=== PATIENT | male | born 1990 | race Caucasian/White ===

== ENCOUNTER → 2019-12-09 16:04 | Outpatient (CLI) | payer OTHER, SELFPAY | PROVIDERS: Visit Provider Physician Assistant | DX: J02.9 Acute pharyngitis, unspecified (principal) | CPT/HCPCS: 87070; 87147 ==

== ENCOUNTER 2020-05-28 15:54 | Emergency (ER) | payer OTHER, SELFPAY ==
[2020-05-28 16:00] VITALS: BP 146/94; PULSE 84; RESP 18; TEMP 36.9; O2SAT 96; BMI 25.0
[2020-05-28 16:48] LABS: Add Manual Diff / Slide Review NO; Basophils Absolute Auto 100 /uL (0-100); Eosinophils Absolute Auto 200 /uL (0-450); Eosinophils Percent Auto 2.2 % (2-4); Hematocrit 43.3 % (41-53); Hemoglobin 14.8 g/dL (13.5-17.5); Lymphocytes Absolute Auto 2100 /uL (1100-4500); Lymphocytes Percent Auto 28.6 % (25-40); Mean Corpuscular HGB Conc 34.2 % (30-36); Mean Corpuscular Hemoglobin 31.6 PG (26-34); Mean Corpuscular Volume 92.4 fL (80-100); Monocytes Absolute Auto 600 /uL (0-900); Monocytes Percent Auto 7.8 % (3-14); Neutrophils Absolute Auto 4400 /uL (1500-7000); Neutrophils Percent Auto 60.4 % (50-75); Platelet Count 313 X10^3/uL (150-400); Red Blood Cell Count 4.68 X10^6/uL (4.5-5.9); Red Cell Distribution Width 13.2 % (11.6-14.8); White Blood Cell Count 7.3 X10^3/uL (4.5-11.0)
--- NOTE | 2020-05-28 16:50 | ED.GENADULT ---
HPI - General Adult General Chief complaint: Syncope Stated complaint: Syncopal episode Time Seen by Provider: 05/28/20 16:24 Source: patient and EMS Mode of arrival: EMS Limitations: altered mental status History of Present Illness HPI narrative: 29-year-old gentleman brought in by medics this afternoon with complaints that he was unresponsive for somewhere between 7 and 10 minutes. His friend is here to help with history supplementation. Apparently he has been drinking this morning and was sitting on his porch and then leaned back and was simply unresponsive. He did continue breathing his friend noted that he did not have seizure activity however his eyes were not closed and that did not appear that he was the ?usual passed out like he was drunk?. Once he did regain consciousness his friend asked him if he wanted to call a medic and the patient responded affirmatively. Once in the emergency room he is rather argumentative and uncooperative and simply states that he wants to go home. His speech is minimally slurred and he has a minimally unsteady gait but is able to walk to the bathroom unaided. His friend reports that he then had told him about a similar episode within the last year or two. He is in tells his friend that he did not have any additional workup because he was not willing to allow blood to be drawn or studies to be run. At this time, He is unwilling to offer any additional history or answer questions at this time. He has consented to blood work but is declining any physical exam or additional help. Review of records indicate that [facility] citalopram and Xanax for refilled for generalized anxiety disorder and depression and he was to return in 3 weeks to re-evaluate medications. The follow-up visit was canceled. Related Data Home Medications Medication Instructions Recorded Confirmed citalopram 20 mg tablet 20 mg PO DAILY 03/23/20 03/23/20 pantoprazole 20 mg tablet,delayed 20 mg PO DAILY 03/23/20 03/23/20 release Previous Rx's Medication Instructions Recorded alprazolam 0.5 mg tablet,extended 0.5 mg PO DAILY #20 tab 03/23/20 release 24 hr citalopram 20 mg tablet 20 mg PO DAILY #30 tab 03/23/20 Allergies Allergy/AdvReac Type Severity Reaction Status Date / Time amoxicillin Allergy Intermediate Hives Verified 03/23/20 16:16 Review of Systems Review of Systems ROS Unobtainable: Unobtainable due to medical condition Patient History Medical History (Updated 05/28/20 @ 17:56 by Nidia Jacobo MD) Chronic GERD (Acute) Generalized anxiety disorder with panic attacks (Acute) Social History Smoking Status: Unknown if ever smoked Smokeless tobacco user: chewing tobacco alcohol intake: never Smoking Status: Unknown if ever smoked alcohol intake frequency: 3 or more drinks per day Alcohol type: hard liquor Substance Use Type: prescription drug Exam Narrative Exam Narrative: General: No acute distress, minimally cooperative HEENT: Moist mucous membranes, normal sclera with reactive pupils, Neck: supple Respiratory: Lungs are clear to auscultation, no wheezing no rales no rhonchi. Full and symmetrical air movement Cardiac: Mildly tachycardic with Regular rate and rhythm no murmurs no bruits Abdomen: Soft nontender good bowel tones, no flank pain Skin: Warm and dry, no rashes Neurologic: Wide-based slightly unsteady gait but no obvious asymmetries or abnormalities Extremities: No trauma, well perfused Psych: belligerent, slightly slurred speech and slightly intoxicated appearing Initial Vital Signs Initial Vital Signs: Vital Signs Temperature 98.5 F 05/28/20 16:00 Pulse Rate 84 05/28/20 16:00 Respiratory Rate 18 05/28/20 16:00 Blood Pressure 146/94 H 05/28/20 16:00 Pulse Oximetry 96 05/28/20 16:00 Course Orders Ordered: ED Orders 05/28/20 16:37 Complete Blood Count AUTO DIFF Stat Comprehensive Metabolic Panel Stat Ethanol (ETOH) Stat Troponin & CK Cardiac Panel Stat 05/28/20 17:04 CT head/brain wo con Stat 05/28/20 17:05 Urine Drug Screen, Rapid Stat Sodium Chloride (Normal Saline 0.9%) 1,000 mls @ 1,000 mls/hr IV BOLUS ONE Stop: 05/28/20 18:43 Discontinued Medications Thiamine HCl (Vitamin B-1) 100 mg IV NOW ONE Stop: 05/28/20 17:45 Vital Signs Vital signs: Vital Signs - 8 hr 05/28/20 16:00 05/28/20 17:00 05/28/20 17:09 Temperature 98.5 F 97.6 F Pulse Rate 84 76 Respiratory Rate 18 20 Blood Pressure 146/94 H Blood Pressure [Right Arm] 156/84 H 156/84 H Pulse Oximetry 96 95 Medical Decision Making Medical Records Medical records reviewed: Yes I reviewed the patient's medical records. Lab Data Lab results reviewed: Yes I reviewed the patient's lab results. Lab results narrative: Alcohol 399 Result diagrams: 05/28/20 16:37 05/28/20 16:37 Labs: Lab Results 05/28/20 05/28/20 05/28/20 Range/Units 16:37 16:37 16:37 WBC 7.3 (4.5-11.0) X10^3/uL RBC 4.68 (4.5-5.9) X10^6/uL Hgb 14.8 (13.5-17.5) g/dL Hct 43.3 (41-53) % MCV 92.4 (80-100) fL MCH 31.6 (26-34) PG MCHC 34.2 (30-36) % RDW 13.2 (11.6-14.8) % Plt Count 313 (150-400) X10^3/uL Neut % (Auto) 60.4 (50-75) % Lymph % (Auto) 28.6 (25-40) % [place] % (Auto) 7.8 (3-14) % Eos % (Auto) 2.2 (2-4) % Baso % (Auto) 1.0 (0-2) % Neut # (Auto) 4400 (2101-5308) /uL Lymph # (Auto) 2100 (8448-9164) /uL [place] # (Auto) 600 (0-900) /uL Eos # (Auto) 200 (0-450) /uL Baso # (Auto) 100 (0-100) /uL Sodium 145 (137-145) mmol/L Potassium 4.1 (3.4-5.1) mmol/L Chloride 108 H (98-107) mmol/L Carbon Dioxide 26 (22-32) mmol/L BUN 13 (9-20) mg/dL Creatinine 0.80 (0.66-1.25) mg/dL Estimated GFR > 60.0 (>60) mL/min BUN/Creatinine Ratio 16.3 (6-22) Glucose 85 (70-100) mg/dL Calcium 8.7 (8.4-10.2) mg/dL Total Bilirubin 0.5 (0.2-1.3) mg/dL AST 45 (17-59) IU/L ALT 27 (<50) IU/L Alkaline Phosphatase 107 (38-126) U/L Total Creatine Kinase 361 H (55-170) U/L CK-MB (CK-2) 2.22 (<2.37) ng/mL CK-MB (CK-2) Rel Index 0.6 L (1.5-5.0) % Troponin I < 0.012 (0.01-0.034) ng/mL Total Protein 7.7 (6.3-8.2) g/dL Albumin 4.6 (3.5-5.0) g/dL Globulin 3.1 (1.7-4.1) g/dL Albumin/Globulin Ratio 1.5 (1.0-2.8) Ethyl Alcohol 399 H ( - 10) mg/dL Imaging Data CT scan - head: Radiologist's Impression: belligerent, slightly slurred speech and slightly intoxicated appearing ECG Data Attestation: I personally reviewed and interpreted this ECG as follows: Interpretation: Normal sinus rhythm, rate of 66 Normal intervals, normal axis No acute STT wave changes MDM Narrative Medical decision making narrative: 29-year-old gentleman with recurrent episodes of altered level of consciousness without airway compromise or cardiac arrhythmia. CT scan is unremarkable. Labs are relatively reassuring. Of acute bleeding, infection, acute coronary syndrome. Mildly elevated CK with normal renal function. Alcohol level significantly elevated at 399. Patient is his friend both are surprised at this level as both indicate that he typically drinks quite a bit more than that. His friend is clinically sober and willing to care for this gentleman who does not want to stay. He is an adult, he is maintaining patent airway, he is clinically intoxicated with alcohol and has a sober adult to continue to care for him. He will be discharged into the care of his sober friend. Discharge Plan Departure Patient Disposition: Home Clinical Impression: Alcohol use disorder Acute alcohol intoxication Qualifiers: Complication of substance-induced condition: uncomplicated Qualified Code(s): F10.920 - Alcohol use, unspecified with intoxication, uncomplicated Alcohol poisoning Qualifiers: Encounter type: initial encounter Injury intent: accidental or unintentional Qualified Code(s): T51.91XA - Toxic effect of unspecified alcohol, accidental (unintentional), initial encounter Instructions: DI for Alcohol Abuse, DI for Alcohol Poisoning Activity Restrictions/Additional Instructions: Here alcohol level today was 399. For reference, legally intoxicated is 80 Your lab work was reassuring. Your CT scan of your head did not show any masses tumors are bleeding and the inside. You did have 2 more episodes in the emergency department were you essentially passed out More alcohol today could kill you today. Drinking this much on a regular basis will absolutely kill you. Please consider talking to your regular doctor about help with alcohol use disorder. If you are interested in any type of treatment beginning with AA meetings might be an excellent option. The [facility] offers multiple treatment choices for addiction disorders. [address] [place] [phone] Prescriptions: No Action citalopram 20 mg tablet 20 mg PO DAILY RF: 0 pantoprazole 20 mg tablet,delayed release (DR/EC) 20 mg PO DAILY RF: 0 citalopram 20 mg tablet 20 mg PO DAILY Qty: 30 RF: 5 alprazolam 0.5 mg tablet extended release 24 hr 0.5 mg PO DAILY Qty: 20 RF: 0 Referrals: Bryce Earl DO [Primary Care Provider] -
[2020-05-28 17:00] VITALS: BP 156/84
[2020-05-28 17:03] LABS: Creatine Kinase 361 U/L (55-170)
[2020-05-28 17:04] LABS: Alanine Aminotransferase 27 IU/L (<50); Albumin 4.6 g/dL (3.5-5.0); Albumin Globulin Ratio 1.5 (1.0-2.8); Alkaline Phosphatase 107 U/L (38-126); Aspartate Aminotransferase 45 IU/L (17-59); BUN Creatinine Ratio 16.3 (6-22); Bilirubin Total 0.5 mg/dL (0.2-1.3); Blood Urea Nitrogen 13 mg/dL (9-20); Calcium 8.7 mg/dL (8.4-10.2); Carbon Dioxide 26 mmol/L (22-32); Chloride 108 mmol/L (98-107); Estimated Glomerular Filt Rate > 60.0 mL/min (>60); Globulin 3.1 g/dL (1.7-4.1); Glucose 85 mg/dL (70-100); HEMOLYSIS < 15 (0-50); Potassium 4.1 mmol/L (3.4-5.1); Sodium 145 mmol/L (137-145); Total Protein 7.7 g/dL (6.3-8.2)
--- NOTE | 2020-05-28 17:04 | DI.CT.S_ITS ---
PROCEDURE: CT HEAD/BRAIN WO CON INDICATIONS: altered mental status TECHNIQUE: Noncontrast 4.5 mm thick angled axial sections acquired from the foramen magnum to the vertex, with coronal and sagittal reformats. For radiation dose reduction, the following was used: automated exposure control, adjustment of mA and/or kV according to patient size. COMPARISON: None. FINDINGS: Image quality: Excellent. CSF spaces: Basal cisterns are patent. No extra-axial fluid collections. Ventricles are normal in size and shape. Brain: No midline shift. No intracranial masses or hemorrhage. Bernard-white matter interface is normal. Skull and face: Calvarium and visualized facial bones are intact, without suspicious lesions. Sinuses: Visualized sinuses and mastoids are clear. IMPRESSION: No evidence acute stroke, hemorrhage, or mass. Negative head CT. Dictated by: Anjel Roy M.D. on 05/28/2020 at 16:36 Approved by: Anjel Roy M.D. on 05/28/2020 at 16:36
[2020-05-28 17:09] VITALS: BP 156/84; PULSE 76; RESP 20; TEMP 36.4; O2SAT 95
[2020-05-28 17:11] LABS: Ethanol (ETOH) 399 mg/dL
[2020-05-28 17:15] LABS: Troponin I < 0.012 ng/mL (0.01-0.034)
[2020-05-28 17:19] LABS: CKMB % Relative Index 0.6 % (1.5-5.0); Creatine Kinase MB 2.22 ng/mL (<2.37)
--- NOTE | 2020-05-28 17:31 | PC.NURSE ---
Pt has a 2nd episode of being unresponsive,eyes closed and does't respond to painful stimuli. pt awake now,does not recall event. Dr layton in room. IV started on patient
--- NOTE | 2020-05-28 17:41 | PC.NURSE ---
1600 Upon arrival, pt refusing IV/labs. Alert/oriented. At times refuses to talk or keep vital sign machines on. Friend arrived at bedside. This friend had witnessed the syncopal episode. 1630 Pt refused to provide urine sample. Did allow RN to draw labs. 1645: Pt out of bed stating he wants to go home. Friend and staff convinced pt to stay to see results of lab work. 1700: Pt had another episode, seizure like activity. MD in room. Seizure pads placed. Pt agreeable to head CT.
[2020-05-28 18:02] VITALS: BP 135/90; PULSE 78; O2SAT 97
== END 2020-05-28 18:14 | disposition home or self-care (01) ==
PROVIDERS: Emergency Provider Emergency Medicine; PCP Family Medicine
DX: T51.91XA Toxic effect of unspecified alcohol, accidental (unintentional), initial encounter (principal); F10.129 Alcohol abuse with intoxication, unspecified; Y90.8 Blood alcohol level of 240 mg/100 ml or more; R79.89 Other specified abnormal findings of blood chemistry
CPT/HCPCS: 36415; 70450; 80053; 80320; 82550; 82553; 84484; 85025; 93005; 99284

== ENCOUNTER → 2020-08-13 15:12 | Outpatient (CLI) | payer OTHER, SELFPAY ==
[2020-08-29 10:45] LABS: Miscellaneous to LabCorp POSITIVE
== END ==
PROVIDERS: PCP Family Medicine; Visit Provider Nurse Practitioner
DX: R30.0 Dysuria (principal)
CPT/HCPCS: 87491; 87591

== ENCOUNTER → 2022-06-12 07:35 | Outpatient (CLI) | payer OTHER, SELFPAY ==
--- NOTE | 2022-06-12 07:37 | DI.RAD.S_ITS ---
PROCEDURE: XR KNEE LT 3V INDICATIONS: left knee pain TECHNIQUE: 3 views of the knee were acquired. COMPARISON: None. FINDINGS: Bones: No fractures or dislocations. No suspicious bony lesions. Soft tissues: Mild joint effusion. No suspicious soft tissue calcifications. IMPRESSION: Mild effusion. No visualized acute fracture or dislocation. However, if clinical concern and/or pain persist, short interval imaging followup in 7-10 days is recommended, as occult injury cannot be definitively excluded. Dictated by: Margarita Almanza M.D. on 06/12/2022 at 9:09 Approved by: Margarita Almanza M.D. on 06/12/2022 at 9:09
== END ==
PROVIDERS: PCP Family Medicine; Referring Provider Physician Assistant; Visit Provider Physician Assistant
DX: M25.562 Pain in left knee (principal); M25.462 Effusion, left knee
CPT/HCPCS: 73562

== ENCOUNTER 2022-11-04 21:10 | Emergency (ER) | payer OTHER, SELFPAY ==
[2022-11-04 21:30] VITALS: BP 160/113; PULSE 88; RESP 18; TEMP 36.9; O2SAT 99; BMI 27.4
--- NOTE | 2022-11-04 22:17 | DI.RAD.S_ITS ---
PROCEDURE: XR CHEST 2V INDICATIONS: chest pain TECHNIQUE: 2 views of the chest were acquired. COMPARISON: [facility], CR, ABDOMEN ACUTE SERIES, 12/14/2015, 14:41. FINDINGS: Surgical changes and devices: None. Lungs and pleura: Lungs are clear. No pleural effusions or pneumothorax. Mediastinum: Mediastinal contours are normal. Heart size is normal. Bones and chest wall: No suspicious bony abnormalities. Soft tissues appear unremarkable. IMPRESSION: 1. No acute cardiopulmonary disease. Dictated by: Gordon Blanco M.D. on 11/04/2022 at 23:12 Approved by: Gordon Blanco M.D. on 11/04/2022 at 23:13
[2022-11-05 00:01] VITALS: BP 138/80; PULSE 80; RESP 18; O2SAT 95
--- NOTE | 2022-11-05 00:03 | PC.NURSE ---
pt ambulated to restroom twice with steady gait.
--- NOTE | 2022-11-05 05:39 | ED.ANXIETY ---
HPI - Anxiety General Chief Complaint: Anxiety Stated Complaint: Panic attack Time Seen by Provider: 11/04/22 22:10 Source: family Mode of arrival: EMS History of Present Illness HPI narrative: Patient is a 32-year-old male presents by EMS with alcohol intoxication. Apparently he and his friend were drinking as he states that healing had 2 shots. He is quite protective and worried about his dog his dog started coughing. He went to a full-blown panic attack. When outside 1 come back in late in the grass is and required EMS transport. He then states that he is having chest pain. He feels like he is always having chest pain it has been always there is can not tell me if it is better or worse. He denies any fever or chills go home. His friend is with him. No evidence of trauma. He is awake alert moving all extremities and ambulatory Related Data Home Medications Medication Instructions Recorded Confirmed citalopram 20 mg tablet 20 mg PO DAILY 03/23/20 08/13/20 pantoprazole 20 mg tablet,delayed 20 mg PO DAILY 03/23/20 08/13/20 release Previous Rx's Medication Instructions Recorded alprazolam 0.5 mg tablet,extended 0.5 mg PO DAILY #20 tabs 03/23/20 release 24 hr citalopram 20 mg tablet 20 mg PO DAILY #30 tabs 03/23/20 azithromycin 500 mg tablet 1,000 mg PO ONCE #2 tabs 08/29/20 Allergies Allergy/AdvReac Type Severity Reaction Status Date / Time amoxicillin Allergy Intermediate Hives Verified 06/12/22 07:20 Review of Systems Review of Systems Narrative: GENERAL: Denies chills,fever HEENT: Denies throat pain RESPIRATORY: Denies dyspnea, cough, wheezing CARDIOVASCULAR: Chronic chest pain see HPI GASTROINTESTINAL: Denies nausea, vomiting MUSCULOSKELETAL: Denies extremity pain, injury SKIN: No rash, no laceration, no pruritus NEUROLOGIC: Denies weakness, dizziness, headache, numbness 8 point review of systems is negative except for those stated above and HPI Patient History Medical History (Updated 11/04/22 @ 23:17 by Salina Blandon DO) Chronic GERD Generalized anxiety disorder with panic attacks Social History Smoking Status: Unknown if ever smoked Smokeless tobacco user: chewing tobacco alcohol intake: never Smoking Status: Unknown if ever smoked alcohol intake frequency: 3 or more drinks per day Alcohol type: hard liquor Substance Use Type: does not use and prescription drug Exam Initial Vital Signs Initial Vital Signs: Vital Signs Temperature 98.4 F 11/04/22 21:30 Pulse Rate 88 11/04/22 21:30 Respiratory Rate 18 11/04/22 21:30 Blood Pressure 160/113 H 11/04/22 21:30 Pulse Oximetry 99 11/04/22 21:30 Oxygen Delivery Method 11/04/22 21:30 GENERAL: Aler 32 year male HEENT: Head atraumatic,EOMI, pupils reactive, face symmetric, moist mucous membranes CARDIOVASCULAR: Regular rate and rhythm without murmurs, rubs or gallops. RESPIRATORY: Breath sounds equal bilaterally, no wheezes rales or rhonchi. EXTREMITIES: Normal range of motion, no clubbing or edema. Neurovascularly intact NEUROLOGICAL: Alert and oriented x4. No slurring of speech, steady gait SKIN: Warm, dry, no laceration, no petechiae, no rashes or lesions. Course Orders Ordered: ED Orders 11/04/22 22:17 Chest [XR chest 2V] Stat EKG-12 Lead Stat Vital Signs Vital signs: Vital Signs - 8 hr 11/05/22 00:01 Pulse Rate 80 Respiratory Rate 18 Blood Pressure 138/80 Pulse Oximetry 95 Oxygen Delivery Method Room Air MDM - Anxiety Imaging Data Chest x-ray: Radiologist's Impression: SURINDER Menjivar [id number] XRay Report Signed Patient: Mitch Caraballo MR#: [id number] : 1990 Acct:[id number] Age/Sex: 32 / M Date of Service: 11/04/22 Loc: ED Accession Number: [id number] ?? Procedure: XR chest 2V Ordering Provider: Salina Blandon D.O. PROCEDURE:? XR CHEST 2V ? INDICATIONS:? chest pain ? TECHNIQUE:? 2 views of the chest were acquired.? ? COMPARISON:? [facility], CR, ABDOMEN ACUTE SERIES, 12/14/2015, 14:41. ? FINDINGS:? ? Surgical changes and devices:? None.? ? Lungs and pleura:? Lungs are clear.? No pleural effusions or pneumothorax.? ? Mediastinum:? Mediastinal contours are normal.? Heart size is normal.? ? Bones and chest wall:? No suspicious bony abnormalities.? Soft tissues appear unremarkable.? ? IMPRESSION:? ? 1.? No acute cardiopulmonary disease. ? ? ? Dictated by: Gordon Blanco M.D. on 11/04/2022 at 23:12 ? ? Approved by: Gordon Blanco M.D. on 11/04/2022 at 23:13 ? ECG Data Interpretation: Sinus rhythm rate 71 AK interval 182 RS [address] changes no T-wave inversions similar to previous EKG MDM Narrative Medical decision making narrative: Patient admits to drinking alcohol but is clinically sober able to ambulate and speak well. His friend to take him home. He has chronic among chest pain. X-ray and EKG are negative. At this time I see no need for any further workup. He appears comfortable. Discharge Plan Departure Patient Disposition: Home Clinical Impression: Alcohol intoxication, Anxiety Instructions: Anxiety Disorders, Alcohol Use Disorder Activity Restrictions/Additional Instructions: *You have been diagnosed with alcohol intoxication *What to do: *Continue to take medications as directed *Follow up with your primary care provider in 2-3 days or call [phone] *Return to ER if you should have any new, worsening or concerning symptoms Prescriptions: No Action azithromycin 500 mg tablet 1,000 mg PO ONCE Qty: 2 0RF Rx Instructions: take both tabs together citalopram 20 mg tablet 20 mg PO DAILY pantoprazole 20 mg tablet,delayed release (DR/EC) 20 mg PO DAILY citalopram 20 mg tablet 20 mg PO DAILY Qty: 30 5RF alprazolam 0.5 mg tablet extended release 24 hr 0.5 mg PO DAILY Qty: 20 0RF Referrals: Phu Earl DO [Primary Care Provider] - Visit Report Forms: Patient Portal/API
== END 2022-11-04 23:10 | disposition home or self-care (01) ==
PROVIDERS: Emergency Provider Emergency Medicine; PCP Family Medicine
DX: F41.9 Anxiety disorder, unspecified (principal); F10.129 Alcohol abuse with intoxication, unspecified; R07.9 Chest pain, unspecified
CPT/HCPCS: 71046; 93005; 93010; 99283; 99284